=== PATIENT | male | born 1985 | race African-American/Black ===

== ENCOUNTER 2019-03-18 14:02 | Emergency (ER) | payer MEDICAID, OTHER ==
--- NOTE | 2019-03-18 14:39 | ED ---
Throat Pain/Nasal Congestion - HPI Summary HPI Summary: Patient is a 33-year-old male who presents emergency department for dental pain 3-4 days. Patient notes that he started with left-sided facial swelling yesterday. He denies fever, chills, nausea or vomiting. He has no significant past medical history. Touching affected area makes symptoms worse. Nothing makes symptoms better. Patient states he does have a dentist in the area and will make a follow-up appointment. - History of Current Complaint Chief Complaint: EDDentalPain Time Seen by Provider: 03/18/19 14:37 Hx Obtained From: Patient - Allergies/Home Medications Allergies/Adverse Reactions: Allergies Allergy/AdvReac Type Severity Reaction Status Date / Time No Known Allergies Allergy Verified 03/18/19 14:12 PMH/Surg Hx/FS Hx/Imm Hx Previously Healthy: Yes Infectious Disease History: No Infectious Disease History: Denies: Traveled Outside the [place] in Last 30 Days - Family History Known Family History: Positive: Non-Contributory - Social History Occupation: Unemployed Lives: With Family Alcohol Use: None Substance Use Type: Reports: None Review of Systems Constitutional: Negative Negative: Fever, Chills Positive: Dental Pain Gastrointestinal: Negative Negative: Vomiting, Nausea All Other Systems Reviewed And Are Negative: Yes Physical Exam Triage Information Reviewed: Yes Vital Signs On Initial Exam: Initial Vitals Temp Pulse Resp BP Pulse Ox 98.4 F 51 16 161/84 100 03/18/19 14:09 03/18/19 14:09 03/18/19 14:09 03/18/19 14:09 03/18/19 14:09 Vital Signs Reviewed: Yes Appearance: Positive: Well-Appearing - Pt. sitting on side of bed in NAD. Skin: Positive: Warm, Dry Head/Face: Positive: Normal Head/Face Inspection Eyes: Positive: Normal, EOMI, IVONNE ENT: Positive: Other - Fracture to left bottom last tooth. No drainable abscess. Mild left facial edema over mandible. No submandibular edema. No trismus. Neck: Positive: Supple, Nontender Musculoskeletal: Positive: Normal, Strength/ROM Intact Neurological: Positive: Normal, CN Intact II-III Psychiatric: Positive: Affect/Mood Appropriate Diagnostics - Vital Signs Vital Signs Temp Pulse Resp BP Pulse Ox 03/18/19 14:09 98.4 F 51 16 161/84 100 - Laboratory Lab Statement: Any lab studies that have been ordered have been reviewed, and results considered in the medical decision making process. EENT Course/Dx - Course Course Of Treatment: Patient presenting with likely dental abscess and mild facial swelling. He is afebrile and well-appearing. We'll treat with penicillin and naproxen. Advised patient to call his dentist tomorrow for close follow-up appointment. Return to the ER if symptoms change or worsen. Patient understands and agrees with plan. - Differential Diagnoses Differential Diagnoses: Dental Abscess, Dental Caries, Periodontic Abscess, Periodontic Disease - Diagnoses Provider Diagnoses: Dental abscess Discharge - Sign-Out/Discharge Documenting (check all that apply): Patient Departure Patient Received Moderate/Deep Sedation with Procedure: No - Discharge Plan Condition: Good Disposition: HOME Prescriptions: Naproxen [Naproxen 500 mg tab] 500 mg PO BID #20 tablet Penicillin VK 500 MG TAB(NF) [Penicillin VK 500 mg Tab] 500 mg PO QID #40 tab Patient Education Materials: Dental Abscess (ED) Referrals: [facility] [place] PHYSICIAN REFERRAL [Outside] Additional Instructions: Follow up with your dentist as soon as possible Call the [facility] physician referral line to establish a primary care physician Take medication as directed Return to ER if symptoms change or worsen - Billing Disposition and Condition Condition: GOOD Disposition: Home
[2019-03-18 15:28] VITALS: BP 130/73
== END 2019-03-18 15:27 | disposition home or self-care (01) ==
LOC: ED 14:02
DX: K04.7 Periapical abscess without sinus (principal)
CPT/HCPCS: 99282